=== PATIENT | female | born 1970 | race Caucasian/White ===

== ENCOUNTER 2016-11-20 07:46 | Emergency (ER) | payer OTHER ==
[~2016-11-20] VITALS: Ht 172.7 cm; Wt 77.0 kg
[2016-11-20 07:57] VITALS: BP 138/75; PULSE 82; RESP 16; TEMP 98; O2SAT 98
[2016-11-20] MEDS ORDERED: SODIUM CHLOR 0.9% 1000 ML INJ 1,000 ML IV SCH (08:12)
[2016-11-20] MEDS ORDERED: KETOROLAC TROMETHAMINE 30 MG/ML (IVP) VIAL IV PUSH ONE (08:15)
[2016-11-20] MEDS ORDERED: SODIUM CHLORIDE 0.9% FLUSH 10 ML FLUSH IV FLUSH PRN (08:15)
[2016-11-20] MEDS ORDERED: ONDANSETRON HCL 4 MG/2 ML VIAL IVP ONE (08:15)
[2016-11-20] MEDS ORDERED: DICYCLOMINE HCL 10 MG CAP PO ONE (08:15)
--- NOTE | 2016-11-20 08:15 | PD ---
HPI Chief Complaint: Abdominal Pain Time Seen by Provider: 08:01 Travel History International Travel<30 days: No Contact w/Intl Traveler<30days: No Traveled to known affect area: No History of Present Illness HPI This is a 46 year old female who presents to the emergency department with 2 days of abdominal cramping, vomiting and diarrhea. Patient reports that her abdominal cramping is intermittent, in the lower abdomen on both sides, moderate severity, associated with an episode of vomiting yesterday, nausea, and loose stools throughout today described as watery. She denies any fevers, dysuria, urinary urgency or frequency. She is visiting from [place]. She ate at a restaurant yesterday but her daughter ate the same thing and wasn't feeling sick. 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 PFSH Past Medical History Diminished Hearing: No GERD: Yes Kidney Stones: Yes Tetanus Vaccination: Unknown Influenza Vaccination: No ?: Not LMP: 11/06/16 Tubal Ligation: Yes Past Surgical History Gynecologic Surgery: Yes Tonsillectomy: Yes Social History Alcohol Use: Yes (on occasion) Tobacco Use: No Substance Use: No Allergies-Medications (Allergen,Severity, Reaction): Coded Allergies: Biaxin (Verified Allergy, Severe, 11/20/16) pt states she passes out, ringing in the ears Reported Meds & Prescriptions Reported Meds & Active Scripts Active No Active Prescriptions or Reported Medications Review of Systems Except as stated in HPI: all other systems reviewed are Neg Physical Exam Narrative GENERAL:Well appearing, no acute distress SKIN: Focused skin assessment warm and dry. HEAD: Atraumatic. Normocephalic. EYES: Pupils equal and round. No injection or drainage. ENT: Moist mucous membranes NECK: Trachea midline. CARDIOVASCULAR: Regular rate and rhythm. No murmur appreciated. RESPIRATORY: Clear to auscultation. Breath sounds equal bilaterally. GASTROINTESTINAL: Abdomen soft, non-tender, nondistended. MUSCULOSKELETAL: No obvious deformities. NEUROLOGICAL: Awake and alert. No obvious cranial nerve deficits. Moving all extremities. PSYCHIATRIC: Appropriate mood and affect; insight and judgment normal. Data Data Last Documented VS Vital Signs Date Time Temp Pulse Resp B/P Pulse Ox O2 Delivery O2 Flow Rate FiO2 11/20/16 08:34 100 Room Air 11/20/16 07:57 98.0 82 16 138/75 Orders Complete Blood Count With Diff (11/20/16 08:12) Comprehensive Metabolic Panel (11/20/16 08:12) Lipase (11/20/16 08:12) Urinalysis - C+S If Indicated (11/20/16 08:12) Iv Access Insert/Monitor (11/20/16 08:12) Ecg Monitoring (11/20/16 08:12) Oximetry (11/20/16 08:12) Ondansetron Inj (Zofran Inj) (11/20/16 08:15) Sodium Chlor 0.9% 1000 Ml Inj (Ns 1000 M (11/20/16 08:12) Sodium Chloride 0.9% Flush (Ns Flush) (11/20/16 08:15) Dicyclomine (Bentyl) (11/20/16 08:15) Ketorolac Inj (Toradol Inj) (11/20/16 08:15) Ed Urine Pregnancytest Poc (11/20/16 08:12) Labs Laboratory Tests Test 11/20/16 08:25 White Blood Count 11.2 TH/MM3 Red Blood Count 4.55 MIL/MM3 Hemoglobin 9.8 GM/DL Hematocrit 32.2 % Mean Corpuscular Volume 70.9 FL Mean Corpuscular Hemoglobin 21.6 PG Mean Corpuscular Hemoglobin 30.5 % Concent Red Cell Distribution Width 17.4 % Platelet Count 186 TH/MM3 Mean Platelet Volume 8.6 FL Neutrophils (%) (Auto) 92.7 % Lymphocytes (%) (Auto) 3.9 % Monocytes (%) (Auto) 3.2 % Eosinophils (%) (Auto) 0.0 % Basophils (%) (Auto) 0.2 % Neutrophils # (Auto) 10.3 TH/MM3 Lymphocytes # (Auto) 0.4 TH/MM3 Monocytes # (Auto) 0.4 TH/MM3 Eosinophils # (Auto) 0.0 TH/MM3 Basophils # (Auto) 0.0 TH/MM3 CBC Comment DIFF FINAL Differential Comment Sodium Level 134 MEQ/L Potassium Level 3.8 MEQ/L Chloride Level 103 MEQ/L Carbon Dioxide Level 24.0 MEQ/L Anion Gap 7 MEQ/L Blood Urea Nitrogen 12 MG/DL Creatinine 0.60 MG/DL Estimat Glomerular Filtration 109 ML/MIN Rate Random Glucose 132 MG/DL Calcium Level 8.3 MG/DL Total Bilirubin 0.4 MG/DL Aspartate Amino Transf 12 U/L (AST/SGOT) Alanine Aminotransferase 19 U/L (ALT/SGPT) Alkaline Phosphatase 79 U/L Total Protein 6.9 GM/DL Albumin 3.5 GM/DL Lipase 117 U/L [facility] Medical Decision Making Medical Screen Exam Complete: Yes Emergency Medical Condition: Yes Interpretation(s) Afebrile, no tachycardia, normotensive Leukocytosis with 92% neutrophils Hemoglobin is 9.8 Hematocrit is 32 Electrolytes are reassuring Lipase is 117 Differential Diagnosis Gastroenteritis, colitis, cholecystitis, appendicitis, diverticulitis Narrative Course This is a 46-year-old female who presents to the emergency department with nausea, vomiting, abdominal cramping and loose stools. She has a completely benign abdomen with no tenderness. She has a mild leukocytosis with reassuring electrolytes. I had a long conversation with the patient regarding imaging versus conservative management. Patient feels much better after IV hydration. I don't think CT imaging is warranted at this time as I doubt a surgical etiology of her symptoms. She will be discharged with Zofran and Bentyl and can return to the emergency department if her symptoms worsen. Patient also incidentally was found to have microcytic anemia which is likely due to iron deficiency in the setting of heavy menstrual cycles. 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 Diagnosis Primary Impression: Gastroenteritis Additional Impression: Anemia Qualified Code: D64.9 - Anemia, unspecified type Patient Instructions: General Instructions Additional Instructions: If you develop lightheadedness, dizziness, persistent vomiting, inability to eat , or severe abdominal pain return to the emergency department. Followup with your primary care physician in 2-3 days if your symptoms have not resolved. Wash your hands aggressively after using the restroom as to not spread your illness to others. Do not return to work until your symptoms have resolved. Take Zofran as needed for nausea. Med/Other Pt SpecificInfo: Prescription(s) given Scripts Ferrous Sulfate (Iron High-Potency)325 Mg Tab1 Tab PO DAILY #20 Prov:Carolyne Sutherland MD 11/20/16 Dicyclomine (Bentyl)10 Mg Cap10 Mg PO QID #15 CAP Ref 0 Prov:Carolyne Sutherland MD 11/20/16 Ondansetron Odt (Zofran Odt)4 Mg Tab4 Mg SL Q6HR PRN (Nausea/Vomiting) #15 TAB Prov:Carolyne Sutherland MD 11/20/16 Disposition: 01 DISCHARGE HOME Condition: Stable Carolyne Sutherland MD November 20, 2016 08:15
[2016-11-20 08:34] VITALS: O2SAT 100
[2016-11-20 08:39] LABS: AUTOMATED NEUTROPHIL # 10.3 TH/MM3 (1.8-7.7); BASOPHIL % 0.2 % (0.0-2.0); HEMATOCRIT 32.2 % (35.0-46.0); HEMO FLAGS DIFF FINAL; LYMPH % 3.9 % (9.0-44.0); LYMPHOCYTE # 0.4 TH/MM3 (1.0-4.8); MEAN CELL VOLUME 70.9 FL (80.0-100.0); MEAN CORPUSCULAR HEMOGLOBIN 21.6 PG (27.0-34.0); MEAN CORPUSCULAR HGB CONC 30.5 % (32.0-36.0); MONO % 3.2 % (0.0-8.0); NEUT % 92.7 % (16.0-70.0); PLATELET COUNT 186 TH/MM3 (150-450); RED BLOOD COUNT 4.55 MIL/MM3 (4.00-5.30); RED CELL DISTRIBUTION WIDTH 17.4 % (11.6-17.2); WHITE BLOOD COUNT 11.2 TH/MM3 (4.0-11.0)
[2016-11-20 08:55] LABS: ANION GAP 7 MEQ/L (5-15); AST (GOT) 12 U/L (15-37); BLOOD UREA NITROGEN 12 MG/DL (7-18); CHLORIDE 103 MEQ/L (98-107); GLOMERULAR FILTRATION RATE 109 ML/MIN (>89); POTASSIUM 3.8 MEQ/L (3.5-5.1); SODIUM (NA) 134 MEQ/L (136-145)
[2016-11-20 08:58] LABS: ALKALINE PHOSPHATASE 79 U/L (45-117); ALT (GPT) 19 U/L (10-53); TOTAL BILIRUBIN ADULT 0.4 MG/DL (0.2-1.0)
[2016-11-20] MEDS ORDERED: ZOFR4TAB3 SL (09:18)
[2016-11-20] MEDS ORDERED: DICY10 PO (09:18)
[2016-11-20] MEDS ORDERED: FERR1TAB52 PO (09:20)
[2016-11-20 09:39] VITALS: BP 125/69
== END 2016-11-20 09:44 | disposition home or self-care (01) ==
LOC: NEPE 07:46
DX: K52.9 Noninfective gastroenteritis and colitis, unspecified (principal); R11.2 Nausea with vomiting, unspecified; D64.9 Anemia, unspecified
CPT/HCPCS: 80053; 83690; 85025; 96374; 96375; 99284; J1885; J2405; J7030